=== PATIENT | male | born 1940 | race Caucasian/White ===

== ENCOUNTER 2017-02-12 11:59 | Day surgery (SDC) | payer OTHER ==
--- NOTE | ~2017-02-12 | OP ---
Record Of Operation [facility] [address] [place]. 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 PROCEDURE: 1. Ultrasound-guided percutaneous access, right common femoral artery. 2. Abdominal aortogram. 3. Left leg arteriogram. 4. Percutaneous angioplasty of the proximal SFA (7 mm x 20 mm EverCross balloon). 5. Angioplasty and stent of left external iliac artery (8 mm x 40 mm Protege EverFlex stent). EQU[employer]MENT [employer]ER [employer]: Hosea. ANESTHESIA: Local with MAC. ESTIMATED BLOOD LOSS: 20 mL. CONTRAST: 45 mL. COMPLICATIONS: None. INDICATION: Mr. Velazquez is a pleasant 76-year-old man with prior history of left femoral- popliteal artery bypass. On surveillance ultrasound, he was found to have stenosis of the proximal bypass graft placing the graft at risk for failure. He is recommended for arteriogram and percutaneous intervention if possible. DETAILS OF PROCEDURE: After informed consent was obtained, the patient was brought to the endovascular suite and placed in supine position. After administration of IV sedation, he was prepped and draped in usual sterile fashion. A time-out was performed. I commenced the procedure with ultrasound-guided percutaneous access to the right common femoral artery. This was somewhat difficult due to the patient's obesity. A permanent image of the artery documenting patency was saved and stored in the patient's chart. I accessed with a micropuncture needle, passed a micropuncture wire, and confirmed intra-arterial under fluoroscopy. I then attempted to place a 5-Salvadorean sheath over a Bentson wire. However, due to the scar tissue in the groin and his obesity, this was not possible. As a result, I had to exchange for an Amplatz wire. Over the Amplatz wire, I was able to place a 5-Salvadorean sheath. I advanced the Amplatz wire and [place] flush catheter into the abdominal aorta. Abdominal aortogram was performed, which showed the infrarenal aorta to be patent with no stenosis. 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 There are dual renal arteries on the right. These were both patent and without high-grade Record Of Operation [facility] [id number] [place]. [address] NAME: SINA VELAZQUEZ : 42 STATUS : [facility] PAT#: [id number] AGE: 76 ADM/REG DATE : 02/12/17 MR#: [id number] REPORT SERV DATE: 02/13/17 DICTATED BY: LILY BETH DATE: 02/13/17 REPORT STATUS : Draft TRANSCRIBED BY: NAV DATE: 02/13/17 stenosis. Left renal artery was patent with no stenosis. Common iliacs were patent bilaterally with no high-grade stenosis. Internal and external iliac arteries were patent bilaterally. The proximal external iliac artery on the left has an 80%-90% stenosis. Next, I pulled the flush catheter down to the bifurcation and selected over the contralateral iliac with a Glidewire. I advanced the flush catheter over the Glidewire over the bifurcation under fluoro. I then performed left leg arteriogram. This showed the common femoral and deep femoral arteries to be patent with no stenosis. The origin of the SFA was patent. There was a stent placed in the proximal SFA that crosses the proximal anastomosis of the bypass graft. There was about a 60% stenosis of the origin of the stent. The bypass itself is patent as is the in-graft stent. As noted on previous arteriograms, the distal portion of the bypass graft was quite redundant making two 90-degree turns prior to the distal anastomosis. The anastomosis itself was patent. The runoff appears to be via the posterior tibial artery, which is patent. 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 After that, I replaced the Amplatz wire. We systemically heparinized. I exchanged the 5-Salvadorean sheath for a 6 x 45 sheath over the bifurcation under fluoro. I crossed through the proximal anastomosis of the bypass graft within the stent. Angioplasty was performed with a 7 mm x 20 mm balloon. This resulted in wide patency with no residual stenosis. I then ballooned the external iliac artery with the same 7 mm x 20 mm balloon. There was significant residual stenosis and mild dissection. As a result, an 8 mm x 40 mm Protege EverFlex stent is placed here. Repeat contrast injection showed this area to be widely patent now with no residual stenosis. There was a good flow distally. After that, sheath was pulled back over the bifurcation over a Bentson wire. Right femoral artery arteriogram shows a puncture site in the distal common femoral artery. Exoseal closure device was deployed for hemostasis. The patient tolerated the procedure well with no complications. MICAELA/NAV Lily Beth M.D. / [id number] CC: Saeid Cohen D.O.
[~2017-02-12 11:59] MED LIST: ADVIL PO; ALEVE220 MG PO; AQUASOL E50 UNT/ML PO; ASAB PO; ASAEC PO; BETA PROSTATE; BETA PROSTATE PO; BLACK CHERRY JUICE PO; BRILINTA90 MG PO; C1 PO; CALTRAT600 PO; CINNAMONPO PO; CIP5 PO; CO Q-10100 MG PO; CO Q-10200 MG PO; COREG3 PO; COREG6 PO; COUMADIN4 MG; ELIQUIS 5 MG TAB5 MG PO; FISH OIL1200 MG PO; FISH-EPA1000 MG PO; FLOMAX4 PO; GARLIC PO; HAWTHORN BER500 MG OR; IMDUR30 PO; IMDUR60 PO; ISOSORB DIN30 MG PO; JANTOVEN4 MG; JANTOVEN4 MG PO; JANTOVEN5 MG; JANTOVEN5 MG PO; JANUVIA50 PO; L20 PO; L40 PO; LECITHIN1 TAB OR; LIQUID MINERALS; LOVENOX1C SC; Lecithin PO; MAGNEBIND200 MG PO; MAGNESIUM PO; NIACIN 500 PO; NIACOR500 MG PO; NIASPAN500 PO; NITROMIST400 MCG SL; NITROSTAT0.4 MG SL; PLAVIX PO; POTASSIUM; PRILO PO; PRILOSEC40 MG PO; PRIN2.5 PO; RAPAFLO4 MG PO; RAPAFLO8 MG PO; RED YEAS1 PO; SYMBICORT 160/41 INH INH; VITAMIN D400 UNI1 PO; Z100 PO; ZANTAC150 MG PO; [UNRECOGNIZED DRUG - OTHER]; [UNRECOGNIZED DRUG - OTHER] PO; [UNRECOGNIZED DRUG - OTHER] PO; [UNRECOGNIZED DRUG - OTHER] PO
[2017-02-12 12:50] LABS: BASOPHILS 0.2 %; BASOPHILS ABSOLUTE 0.02 10/3/uL (0.0-0.16); EOSINOPHILS 3.2 %; EOSINOPHILS ABSOLUTE 0.29 10/3/uL (0.0-0.53); HEMATOCRIT 44.6 % (40.0-51.0); HEMOGLOBIN 15.6 g/dL (13.6-17.8); IMMATURE GRANULOCYTES 0.4 %; IMMATURE GRANULOCYTES ABSOLUTE 0.04 10/3/uL (0.0-0.11); LYMPHOCYTES ABSOLUTE 2.15 10/3/uL (0.67-4.30); MANUAL DIFF NO %; MEAN CORPUSCULAR HEMOGLOB 32.2 pg (26.0-34.0); MEAN PLATELET VOLUME 10.5 fL (9.2-13.0); MONOCYTES 8.9 %; NEUTROPHILS 63.3 %; NEUTROPHILS ABSOLUTE 5.67 10/3/uL (2.02-8.40); PLATELET COUNT 264 10/3/uL (150-400); RBC DISTRIBUTION WIDTH 12.6 % (12.0-16.0); RED CELL COUNT 4.85 10/6/uL (4.7-6.1)
[2017-02-12 12:57] LABS: INTERNATIONAL NORMAL RATI 1.1 UNITS (-); PARTIAL THROMBO TIME 28.1 SEC (22.5-37.2); PROTIME (NOT ORD) 14.3 SEC (12.0-14.5)
[2017-02-12 13:00] LABS: BUN (BLOOD UREA NITROGEN) 27 MG/DL (6-23); CALCIUM, SERUM 9.6 MG/DL (8.5-10.4); CHLORIDE, SERUM 106 MMOL/L (96-112); CO2 (CARBON DIOXIDE) 27 MMOL/L (24-34); CREATININE 1.45 MG/DL (0.70-1.30); GFR AFRICAN AMERICAN 54 ML/MIN (>=60); GFR NON AFRICAN AMERICAN 47 ML/MIN (>=60); GLUCOSE, SERUM 158 MG/DL (60-99); POTASSIUM, SERUM 4.4 MMOL/L (3.5-5.3); SODIUM, SERUM 136 MMOL/L (135-148)
== END 2017-02-12 20:03 | disposition home or self-care (01) ==
LOC: SDC 11:59 → SSU1 16:36
PROVIDERS: Surgery
PROC: B410ZZZ Fluoroscopy of Abdominal Aorta (ICD-10-PCS; principal; 2017-02-12 12:45)
PROC: B41GZZZ Fluoroscopy of Left Lower Extremity Arteries (ICD-10-PCS; 2017-02-12 12:45)
PROC: 047L3ZZ Dilation of Left Femoral Artery, Percutaneous Approach (ICD-10-PCS; 2017-02-12 12:45)
PROC: 047J3DZ Dilation of Left External Iliac Artery with Intraluminal Device, Percutaneous Approach (ICD-10-PCS; 2017-02-12 12:45)
DX: T82.858A Stenosis of other vascular prosthetic devices, implants and grafts, initial encounter (principal); I25.10 Atherosclerotic heart disease of native coronary artery without angina pectoris; I25.2 Old myocardial infarction; I12.9 Hypertensive chronic kidney disease with stage 1 through stage 4 chronic kidney disease, or unspecified chronic kidney disease; E11.22 Type 2 diabetes mellitus with diabetic chronic kidney disease; E11.51 Type 2 diabetes mellitus with diabetic peripheral angiopathy without gangrene; N18.4 Chronic kidney disease, stage 4 (severe); G47.33 Obstructive sleep apnea (adult) (pediatric); K21.9 Gastro-esophageal reflux disease without esophagitis; Z95.1 Presence of aortocoronary bypass graft; Z95.5 Presence of coronary angioplasty implant and graft; Z86.718 Personal history of other venous thrombosis and embolism; Z88.8 Allergy status to other drugs, medicaments and biological substances; Z79.01 Long term (current) use of anticoagulants; Z79.02 Long term (current) use of antithrombotics/antiplatelets; Z79.84 Long term (current) use of oral hypoglycemic drugs; Z79.899 Other long term (current) drug therapy
CPT/HCPCS: 37221; 37224; 75625; 75710; 76937; 80048; 82962; 85025; 85610; 85730; 93005; A9270-GY; C1725; C1760; C1769; C1876; C1894; J0690; J2250; J3010; Q9967